=== PATIENT | female | born 1985 | race Caucasian/White ===

== ENCOUNTER 2017-07-12 08:48 | Emergency (ER) | payer OTHER ==
[~2017-07-12] VITALS: Ht 157.5 cm; Wt 77.1 kg
[2017-07-12 08:50] VITALS: BP 146/89
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
--- NOTE | 2017-07-12 09:12 | NUR ---
XRAY AT BEDSIDE AT THIS TIME.
[2017-07-12] MEDS ORDERED: KETOROLAC 60 MG/2 ML VIAL IM ONE (09:25)
[2017-07-12 10:31] VITALS: BP 138/81
== END 2017-07-12 10:32 | disposition home or self-care (01) ==
LOC: MED 08:48
DX: S52.502A Unspecified fracture of the lower end of left radius, initial encounter for closed fracture (principal); V49.49XA Driver injured in collision with other motor vehicles in traffic accident, initial encounter; Y93.89 Activity, other specified; Y99.8 Other external cause status; Y92.488 Other paved roadways as the place of occurrence of the external cause
CPT/HCPCS: 29125; 73110; 96372; 99284; J1885; Q0092

== ENCOUNTER 2017-12-23 16:53 | Emergency (ER) | payer OTHER ==
[~2017-12-23] VITALS: Ht 160 cm; Wt 81.6 kg
[2017-12-23 17:05] VITALS: BP 131/87
[2017-12-23 17:49] VITALS: BP 137/78
== END 2017-12-23 17:50 | disposition home or self-care (01) ==
LOC: MED 16:53
DX: J30.9 Allergic rhinitis, unspecified (principal); F17.200 Nicotine dependence, unspecified, uncomplicated
CPT/HCPCS: 99283